=== PATIENT | male | born 1950 | race Caucasian/White ===

== ENCOUNTER 2020-05-18 08:29 | Emergency (ER) | payer MEDICARE, BC ==
[~2020-05-18] VITALS: Ht 177.8 cm; Wt 118.2 kg
[2020-05-18 08:41] VITALS: TEMP 98.4
[2020-05-18 08:54] LABS: BASO # 0.1 (0.0-0.2); EOS # 0.2 (0.0-0.7); EOS % 3.1 % (0-4.0); GRAN # 5.5 (1.4-6.5); HEMATOCRIT 49.5 % (42.0-52.0); HEMOGLOBIN 16.8 g/dl (13.5-18.0); LYMPH # 1.4 (1.2-3.4); LYMPH % 18.1 % (20.0-51.0); MEAN CELL VOLUME 85 fl (80.0-100.0); MEAN CORPUSCULAR HEMOGLOBIN 29 pg (27.0-31.0); MEAN CORPUSCULAR HGB CONC 34 g/dl (33.0-37.0); MEAN PLATELET VOLUME 9.7 fl (7.4-10.4); MONO # 0.6 (0.1-0.6); MONO % 7.4 % (1.7-9.3); PLATELET COUNT 175 K/mm3 (130-400); REDCELL DISTRIBUTION WIDTH-CV 13.2 % (11.5-14.5)
[2020-05-18] MEDS ORDERED: NORVASC 10MG10 MG PO (08:58)
[2020-05-18] MEDS ORDERED: ZYLOPRIM 100MG100 MG PO (08:59)
[2020-05-18] MEDS ORDERED: LIPITOR 40MG TA40 MG PO (08:59)
[2020-05-18] MEDS ORDERED: CANA300T PO (09:00)
[2020-05-18] MEDS ORDERED: GLUCOTROL 5M5 MG/TAB PO (09:00)
[2020-05-18] MEDS ORDERED: ASPIRIN 81M81 MG/TA2 PO (09:00)
[2020-05-18] MEDS ORDERED: ELIQUIS 5MG PO (09:01)
[2020-05-18 09:17] LABS: ALANINE AMINOTRANSFERASE 31 U/L (4-49); ALBUMIN 4.3 gm/dL (3.5-5.0); ALKALINE PHOSPHATASE 100 U/L (50-136); ANION GAP 8 mmol/L (7-16); AST,SGOT 29 U/L (15-37); BILIRUBIN,TOTAL 0.6 mg/dL (0.0-1.0); BLOOD UREA NITROGEN 21 mg/dL (9-20); CARBON DIOXIDE 22 mmol/L (22-30); CHLORIDE 108 mmol/L (98-107); CREATININE, serum 1.19 (0.66-1.25); GLUCOSE 194 mg/dL (74-106); MAGNESIUM 1.9 mg/dL (1.6-2.3); POTASSIUM 4.6 mmol/L (3.4-5.0); SODIUM 138 mmol/L (137-145); TOTAL PROTEIN 7.1 gm/dL (6.4-8.2)
[2020-05-18 09:31] LABS: TROPONIN-I < 0.012 ng/mL (0.000-0.035)
[2020-05-18 11:40] VITALS: BP 104/74; PULSE 67
== END 2020-05-18 12:05 | disposition home or self-care (01) ==
LOC: COL.ER 08:29
PROVIDERS: Emergency Medicine
DX: I48.91 Unspecified atrial fibrillation (principal); E11.9 Type 2 diabetes mellitus without complications; I25.10 Atherosclerotic heart disease of native coronary artery without angina pectoris; Z95.9 Presence of cardiac and vascular implant and graft, unspecified; Z79.01 Long term (current) use of anticoagulants; Z79.82 Long term (current) use of aspirin; Z79.84 Long term (current) use of oral hypoglycemic drugs
CPT/HCPCS: J2704

== ENCOUNTER 2024-02-06 22:43 | Emergency (ER) | payer MEDICARE ==
[~2024-02-06] VITALS: Ht 177.8 cm; Wt 118.2 kg
[~2024-02-06 22:43] MED LIST: ASPIRIN 81M81 MG/TA2 PO; CANA300T PO; ELIQUIS 5MG PO; GLUCOTROL 5M5 MG/TAB PO; LIPITOR 40MG TA40 MG PO; NORVASC 10MG10 MG PO; ZYLOPRIM 100MG100 MG PO
[2024-02-07 00:20] LABS: BASO # 0.1 K/mm3 (0.0-0.2); EOS # 0.2 K/mm3 (0.0-0.7); EOS % 2.7 % (0.0-4.0); GRAN # 3.9 K/mm3 (1.4-6.5); GRAN % 62.1 % (42.2-75.2); HEMATOCRIT 48.9 % (42.0-52.0); HEMOGLOBIN 16.5 g/dl (13.5-18.0); LYMPH # 1.6 K/mm3 (1.2-3.4); LYMPH % 25.3 % (20.0-51.0); MEAN CELL VOLUME 87 fl (80.0-100.0); MEAN CORPUSCULAR HEMOGLOBIN 29 pg (27-31); MEAN CORPUSCULAR HGB CONC 34 g/dl (33.0-37.0); MEAN PLATELET VOLUME 10.3 fl (7.4-10.4); MONO # 0.5 K/mm3 (0.1-0.6); MONO % 8.4 % (1.7-9.3); PLATELET COUNT 167 K/mm3 (130-400); RED BLOOD COUNT 5.63 M/mm3 (4.20-5.60); REDCELL DISTRIBUTION WIDTH-CV 13.2 % (11.5-14.5)
[2024-02-07 00:23] LABS: ALANINE AMINOTRANSFERASE 21 U/L (0-55); ALKALINE PHOSPHATASE 75 U/L (40-150); ANION GAP 13 mmol/L (7-16); AST,SGOT 17 U/L (5-34); BILIRUBIN,TOTAL 0.6 mg/dL (0.2-1.2); BLOOD UREA NITROGEN 27 mg/dL (8-26); CALCIUM 9.8 mg/dL (8.4-10.2); CHLORIDE 109 mEq/L (98-107); CREATININE, serum 1.65 mg/dL (0.72-1.25); GLUCOSE 206 mg/dL (70-99); POTASSIUM 4.1 mEq/L (3.5-4.5); SODIUM 142 mEq/L (136-145)
[2024-02-07 00:31] LABS: TROPONIN-I < 0.010 ng/mL (0.00-0.033)
[2024-02-07 01:00] VITALS: TEMP 97.8
[2024-02-07 01:04] LABS: PH 5.5 (5.0-8.5); URINE APPEARANCE CLEAR (CLEAR/HAZY); URINE BLOOD NEGATIVE (NEGATIVE); URINE COLOR YELLOW (YELLOW); URINE GLUCOSE 3+ (NEGATIVE); URINE KETONE NEGATIVE (NEGATIVE); URINE NITRATE NEGATIVE (NEGATIVE); URINE PROTEIN(semi-quant) NEGATIVE (NEGATIVE)
[2024-02-07 01:18] LABS: COLLECTION METHOD CLEAN CATCH
[2024-02-07 02:28] VITALS: BP 116/81; PULSE 91
== END 2024-02-07 02:28 | disposition home or self-care (01) ==
LOC: COL.ER 22:43
PROVIDERS: Emergency Medicine
DX: I48.91 Unspecified atrial fibrillation (principal); I20.9 Angina pectoris, unspecified; Z79.01 Long term (current) use of anticoagulants